=== PATIENT | female | born 1955 | race Caucasian/White ===

== ENCOUNTER 2020-12-19 12:35 | Emergency (ER) | payer OTHER ==
[2020-12-19] MEDS ORDERED: Lactated Ringers 1,000 ML IV SCH (13:15)
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
[2020-12-19] MEDS ORDERED: Sodium Chloride 0.9% 1,000 ML IV ONE (14:34)
[2020-12-19 14:52] VITALS: BP 204/84; PULSE 71
[2020-12-19] MEDS ORDERED: Ondansetron 4 MG/2 ML SDV IVPUSH ONE (15:18)
== END 2020-12-19 15:55 | disposition home or self-care (01) ==
LOC: JP.ED 12:35
DX: E86.0 Dehydration (principal); R11.0 Nausea; I10 Essential (primary) hypertension; J44.9 Chronic obstructive pulmonary disease, unspecified; K21.9 Gastro-esophageal reflux disease without esophagitis; Z72.0 Tobacco use; Z79.01 Long term (current) use of anticoagulants; Z91.041 Radiographic dye allergy status; Z88.1 Allergy status to other antibiotic agents; Z91.040 Latex allergy status; Z79.82 Long term (current) use of aspirin; Z79.02 Long term (current) use of antithrombotics/antiplatelets; Z79.899 Other long term (current) drug therapy
CPT/HCPCS: 36415; 80048; 83735; 96374; 99283; 99284; J2405; J7030; J7120